=== PATIENT | male | born 1950 | race Caucasian/White ===

== ENCOUNTER 2020-02-26 07:18 | Emergency (ER) | payer MEDICARE, BC, SELFPAY ==
--- NOTE | ~2020-02-26 | XR_ITS ---
XR foot RT min 3V DATE: 02/26/2020 07:47 INDICATION: First metatarsophalangeal joint pain. History of gout. TECHNIQUE: 4 views COMPARISON: None FINDINGS: The radiographic manifestations of gout typically do not appear to years after the clinical presentation. No punched-out erosions are identified. Joint spaces are relatively preserved. There i s an old healed fracture deformity of the proximal phalanx of the fifth digit. No recent fracture, di slocation, periosteal reaction or bone destruction is detected. There are some calcifications along the plantar aponeurosis. There is mild plantar and more prominent posterior calcaneal enthesopathy. IMPRESSION: Calcaneal enthesopathy; calcifications along plantar aponeurosis Old healed fracture deformity of proximal phalanx of fifth digit Radiographic manifestations of gout are not yet evident Reviewed, dictated and finalized at location A.
[2020-02-26] MEDS: COLCHICINE 0.6 MG TABLET 1.2 MG PO (07:49)
[2020-02-26 07:59] VITALS: BP 144/78; PULSE 84; RESP 14; TEMP 37.1; O2SAT 99
--- NOTE | 2020-02-26 08:32 | ED.GENADULT ---
HPI - General Adult General Chief complaint: Extremity Problem,Nontraumatic Stated complaint: Gout on right foot Time Seen by Provider: 02/26/20 07:30 History of Present Illness HPI narrative: Patient is a 69-year-old male who presents ER with pain in his right first MTP. Symptoms began 3 days ago. Increasing discomfort. Feels similar to previous gout flare. Mild redness of the joint but no extension of the leg. No known trauma. Reports he has been eating a lot of sauces with [place] and his been eating barbecue. No previous food triggers that he is aware of. Related Data Allergies Allergy/AdvReac Type Severity Reaction Status Date / Time No Known Allergies Allergy Unverified 01/17/19 09:25 Review of Systems Constitutional: Constitutional: Reports chills, Denies fever(s) and Denies weakness Musculoskeletal: Musculoskeletal: Denies myalgias, Reports arthralgias and Reports joint swelling PMFSH Past Medical History Medical History (Updated 02/26/20 @ 09:20 by Irving Taylor MD) Gout Hypertension Surgical History Surgical History (Updated 02/26/20 @ 08:32 by Irving Taylor MD) No pertinent past surgical history Social History Social History (Updated 02/26/20 @ 08:35 by rIving Taylor MD) Smoking status: Never smoker Gender identity (if verbalized by the patient): Male Exam Narrative: Exam Narrative: GENERAL: Well-appearing, well-nourished, and in no acute distress. HEAD: Normocephalic, atraumatic. EXTREMITIES: Normal range of motion. 1+ edema. Redness to the right first MTP with mild tenderness over the medial aspect. No tenderness with range of motion of the toes with ankle. No lymphangitic streaking. Normal dorsalis pedis pulses. SKIN: Warm, dry, no rash. NEURO: Alert and oriented x3. PSYCH: Normal mood and affect. Course Vital Signs Vital signs: Vital Signs Temperature 98.7 F 02/26/20 07:59 Pulse Rate 84 02/26/20 07:59 Respiratory Rate 14 02/26/20 07:59 Blood Pressure 144/78 H 02/26/20 07:59 Pulse Oximetry 99 02/26/20 07:59 Temperature 98.7 F 02/26/20 07:59 Pulse Rate 84 02/26/20 07:59 Respiratory Rate 14 02/26/20 07:59 Blood Pressure 144/78 H 02/26/20 07:59 Pulse Oximetry 99 02/26/20 07:59 Medical Decision Making Vital Signs Vital Signs: Vital Signs Temperature 98.7 F 02/26/20 07:59 Pulse Rate 84 02/26/20 07:59 Respiratory Rate 14 02/26/20 07:59 Blood Pressure 144/78 H 02/26/20 07:59 Pulse Oximetry 99 02/26/20 07:59 Temperature 98.7 F 02/26/20 07:59 Pulse Rate 84 02/26/20 07:59 Respiratory Rate 14 02/26/20 07:59 Blood Pressure 144/78 H 02/26/20 07:59 Pulse Oximetry 99 02/26/20 07:59 Imaging Data Radiologist's impression: ITS Impressions Foot X-Ray 02/26/20 08:42 IMPRESSION: Calcaneal enthesopathy; calcifications along plantar aponeurosis Old healed fracture deformity of proximal phalanx of fifth digit Radiographic manifestations of gout are not yet evident Discharge Plan Discharge Clinical Impression: Gout Patient Disposition: Home, Self-Care Condition: Stable Instructions: Gout (ED) Additional Instructions: Return to the ER if you have worsening pain, you have fever over 100.4 ?F, you have additional concerns. Prescriptions: New hydrocodone-acetaminophen 5-325 mg tablet 1 tablet PO Q6H PRN (Reason: pain) Qty: 14 RF: 0 prednisone 50 mg tablet 50 mg PO DAILY Qty: 7 RF: 0 Follow-up/Referrals: UNKNOWN,DOCTOR [Primary Care Provider] - 1 Week
[2020-02-26] MEDS: COLCHICINE 0.6 MG TABLET PO (08:43)
[2020-02-26 09:29] VITALS: BP 140/68; PULSE 80; RESP 14; O2SAT 99
== END 2020-02-26 09:30 | disposition home or self-care (01) ==
PROVIDERS: Emergency Provider Emergency Medicine
DX: M10.9 Gout, unspecified (principal); I10 Essential (primary) hypertension; M77.32 Calcaneal spur, left foot
CPT/HCPCS: 73630; 99283; A9270